=== PATIENT | female | born 1965 | race African-American/Black ===

== ENCOUNTER → 2022-08-22 | Outpatient (CLI) | payer MEDICARE, OTHER ==
[2022-08-22 18:07] LABS: Basophils # (A) 0.07 X 10*3/uL (0.00-0.10); Eosinophils # (A) 0.15 X 10*3/uL (0.04-0.35); Eosinophils % (A) 2.2 %; HCT 40.5 % (37.2-46.3); HGB 12.9 g/dL (12.0-15.0); Immature Grans, Automated 0.4 %; Lymphocytes # (A) 3.44 X 10*3/uL (0.90-5.00); Lymphocytes % (A) 50.1 %; MCH 31.3 pg (27.0-32.0); MCHC 31.9 g/dL (32.0-37.0); MCV 98.3 fL (80.0-97.0); Mean Platelet Volume 11.4 fL (9.5-12.2); Monocytes # (A) 0.51 X 10*3/uL (0.20-1.00); Monocytes % (A) 7.4 %; NRBC Per 100 WBC 0 /100 WBCS (0.0-0.0); Neutrophils # (A) 2.67 X 10*3/uL (1.80-7.70); Neutrophils % (A) 38.9 %; Platelet Count 324 X 10*3/uL (140-440); RBC 4.12 X 10*6/uL (4.10-5.20); RDW 13.2 % (11.5-14.5); WBC 6.87 X 10*3/uL (4.50-10.00)
[2022-08-22 19:13] LABS: African American GFR (CKD) 83.4 (60.0-200.0); Anion Gap 12.3 mmol/L (10.00-18.00); Blood Urea Nitrogen 9.7 mg/dL (9.0-27.0); Carbon Dioxide 21.7 mmol/L (20.0-27.5); Potassium 4.7 mmol/L (3.5-5.5)
== END | disposition home or self-care (01) ==
LOC: LABPAT 10:56
PROVIDERS: ATTEND Internal Medicine Interventional Cardiology
DX: Z01.812 Encounter for preprocedural laboratory examination (principal); I35.1 Nonrheumatic aortic (valve) insufficiency
CPT/HCPCS: 80051; 82565; 84520; 85025